=== PATIENT | male | born 2000 | race Caucasian/White ===

== ENCOUNTER 2021-08-26 06:49 | Emergency (ER) | payer BC | END 2021-08-26 08:28 | disposition left against medical advice (07) | LOC: ER 06:49 | DX: R06.02 Shortness of breath (principal); Z53.21 Procedure and treatment not carried out due to patient leaving prior to being seen by health care provider ==

== ENCOUNTER 2021-09-14 06:00 | Emergency (ER) | payer BC ==
[~2021-09-14] VITALS: Ht 185.4 cm; Wt 84.0 kg
[2021-09-14] MEDS ORDERED: predniSONE 20 MG TABLET PO ONE (06:30)
[2021-09-14] MEDS ORDERED: IPRATRPIUM/ALBUTEROL 0.5/2.5MG 3 ML NEBU. NEB ONE ×2 (06:30)
--- NOTE | 2021-09-14 06:35 | ED.ADGEN ---
Past Medical History Past Surgical History: No Surgical History General Adult EDM: Chief Complaint: ASTHMA HPI: HPI: Patient is a 21 year old male coming in for asthma exacerbation. Patient states that he woke up about 3 hours prior to arrival with worsening shortness of breath. Patient states he uses inhaler once before he went to bed, woke up and had to use against it only helps for about 30 minutes. Does not have a nebulizer at home. Patient states that his regular about once a day. Is never been hospitalized for his asthma. Review of Systems: Review of Systems: All other systems within normal limits except for as noted in the HPI Current Medications: Current Medications Medications (Trade) Dose Ordered Sig/Ronny Start Time Stop Time Status Last Admin Dose Admin Albuterol/ Ipratropium (Duoneb) 3 ml 1X ONCE 09/14/21 06:30 09/14/21 06:31 DC 09/14/21 06:30 3 ML Prednisone (Prednisone) 60 mg 1X ONCE 09/14/21 06:30 09/14/21 06:31 DC 09/14/21 07:09 60 MG Allergies: Allergies: Allergies Coded Allergies Type Severity Reaction Last Updated Verified naproxen Allergy Unknown 09/14/21 Yes Physical Exam: PE: Constitutional: Well developed, well nourished, no acute distress, non-toxic appearance. [] HENT: Normocephalic, atraumatic, bilateral external ears normal, nose normal. [] Eyes: PERRLA, conjunctiva normal, no discharge. [] Neck: No rigidity, supple, no stridor. [] Cardiovascular: Regular rate and rhythm, brisk cap refill [] Lungs & Thorax: Non labored symmetric respirations, no tachypnea or respiratory distress. Bilateral expiratory and inspiratory wheezes. Abdomen: Soft, nondistended. Skin: Warm, dry, no erythema, no rash. [] Back: Unremarkable Extremities: No deformities, range of motion grossly intact, no lower extremity edema [] Neurologic: Alert and oriented X 3, no focal deficits noted. [] Psychologic: Affect normal, judgement normal, mood normal. [] Current Patient Data: Vital Signs: Vital Signs Date Time Temp Pulse Resp B/P (MAP) Pulse Ox O2 Delivery O2 Flow Rate FiO2 09/14/21 07:04 95 Room Air 09/14/21 06:05 80 24 132/70 (90) EKG: EKG: [] Heart Score: C/O Chest Pain: No Risk Factors: Risk Factors: DM, Current or recent (<one month) smoker, HTN, HLP, family history of CAD, obesity. Risk Scores: Score 0 - 3: 2.5% MACE over next 6 weeks - Discharge Home Score 4 - 6: 20.3% MACE over next 6 weeks - Admit for Clinical Observation Score 7 - 10: 72.7% MACE over next 6 weeks - Early Invasive Strategies Radiology/Procedures: Radiology/Procedures: [facility] [address] [place] [address] IMAGING REPORT Signed PATIENT: ANNABEL SALDIVAR ACCOUNT: [id number] : 2000 LOCATION: ER AGE: 21 SEX: M EXAM STATUS: REG ER ORD. PHYSICIAN: ROHITH HENRY MD REASON: wheezing PROCEDURE: CHEST AP ONLY AP chest. HISTORY: Wheezing AP view was taken of the chest. Lungs are free of infiltrates. Heart is normal in size. There is no pleural effusion. IMPRESSION: 1. No acute chest disease. Electronically signed by: Lew Leigh MD (09/14/2021 7:05 AM) [facility] DICTATED and SIGNED BY: LEW LEIGH MD DATE: 09/14/21 0704 [] Course & Med Decision Making: Course & Med Decision Making Pertinent Labs and Imaging studies reviewed. (See chart for details) [] Leoncio Disclaimer: Leoncio Disclaimer: This electronic medical record was generated, in whole or in part, using a voice recognition dictation system. Departure Departure Impression: Primary Impression: Asthma exacerbation Disposition: HOME / SELF CARE / HOMELESS Condition: STABLE Referrals: UNKNOWN PCP NAME (PCP) Patient Instructions: Asthma Attacks, Prevention Scripts Prednisone (PREDNISONE) 50 Mg Tablet 1 TAB PO DAILY for steroid for 4 Days, #4 TAB Prov: ROHITH HENRY MD 09/14/21 ROHITH HENRY MD Sep 14, 2021 06:35
--- NOTE | 2021-09-14 07:07 | RAD ---
AP chest. HISTORY: Wheezing AP view was taken of the chest. Lungs are free of infiltrates. Heart is normal in size. There is no p leural effusion. IMPRESSION: 1. No acute chest disease. Electronically signed by: Lew Armas MD (09/14/2021 7:05 AM) [facility]
[2021-09-14] MEDS ORDERED: PRED50TA PO (07:38)
[2021-09-14 08:10] VITALS: BP 127/81
== END 2021-09-14 08:29 | disposition home or self-care (01) ==
LOC: ER 06:00
DX: J45.901 Unspecified asthma with (acute) exacerbation (principal); Z88.5 Allergy status to narcotic agent
CPT/HCPCS: 71045; 94640; 99284; J7512

== ENCOUNTER 2021-09-28 10:47 | Emergency (ER) | payer BC ==
[~2021-09-28] VITALS: Ht 185.4 cm; Wt 88.0 kg
[~2021-09-28 10:47] MED LIST: PRED50TA PO
[2021-09-28] MEDS ORDERED: IPRATRPIUM/ALBUTEROL 0.5/2.5MG 3 ML NEBU. NEB ONE (11:00)
[2021-09-28] MEDS ORDERED: DEXAMETHASONE SOD PHOS 20 MG/5 ML VIAL. IM ONE (11:15)
--- NOTE | 2021-09-28 11:31 | PHYS DOC ---
Past Medical History Past Surgical History: No Surgical History Smoking Status: Never Smoker Alcohol Use: Occasionally General Adult EDM: Chief Complaint: SHORTNESS OF BREATH HPI: HPI: Patient is a 21-year-old male presents to the emergency department complaining of asthma attack that started this morning when he woke up at approximately 8:30 AM. Patient reports taking 2 puffs of his rescue albuterol MDI at that time, repeated 2 more times prior to coming to the emergency department. Patient reports his last asthma exacerbation was 3 weeks ago in which he was treated with albuterol treatments and steroid therapy and discharged home. Patient denies hospitalizations related to asthma problems. Patient states his only other medication he takes at home is Zyrtec daily for allergies. States he follows a Dr. Covington in [facility] for his asthma problems. Patient denies recent fever or chills, denies cough chest or nasal congestion. Patient denies rashes or itching to his skin. Denies throat swelling or throat pain. Denies ear pain. Patient denies dizziness, syncopal or near syncopal episodes. Trinidad ent denies chest pain, chest or palpitations. Patient denies a surgical history. Patient denies other physical complaints or physical concerns. Review of Systems: Review of Systems: 14 body systems of review of systems have been reviewed. See HPI for pertinent positives and negative responses, otherwise all other systems are negative, nonpertinent or noncontributory. Constitutional: Negative except as outlined in HPI above. Skin: Negative except as outlined in HPI above. Eyes: Negative except as outlined in HPI above. HENT: Negative except as outlined in HPI above. Respiratory: Negative except as outlined in HPI above. Cardiovascular: Negative except as outlined in HPI above. GI: Negative except as outlined in HPI above. : Negative except as outlined in HPI above. Musculoskeletal: Negative except as outlined in HPI above. Integument: Negative except as outlined in HPI above. Neurologic: Negative except as outlined in HPI above. Endocrine: Negative except as outlined in HPI above. Lymphatic: Negative except as outlined in HPI above. Psychiatric: Negative except as outlined in HPI above. Heart Score: C/O Chest Pain: No Risk Factors: Risk Factors: DM, Current or recent (<one month) smoker, HTN, HLP, family history of CAD, obesity. Risk Scores: Score 0 - 3: 2.5% MACE over next 6 weeks - Discharge Home Score 4 - 6: 20.3% MACE over next 6 weeks - Admit for Clinical Observation Score 7 - 10: 72.7% MACE over next 6 weeks - Early Invasive Strategies Current Medications: Current Medications Medications (Trade) Dose Ordered Sig/Ronny Start Time Stop Time Status Last Admin Dose Admin Albuterol/ Ipratropium (Duoneb) 3 ml 1X ONCE 09/28/21 11:00 09/28/21 11:01 DC 09/28/21 11:07 3 ML Dexamethasone Sodium Phosphate (Decadron) 10 mg 1X ONCE 09/28/21 11:15 09/28/21 11:16 DC Allergies: Allergies: Allergies Coded Allergies Type Severity Reaction Last Updated Verified naproxen Allergy Intermediate 09/28/21 Yes Physical Exam: PE: Constitutional: Well developed, well nourished, no acute distress, non-toxic appearance. 21-year-old male in mild respiratory distress. Audible I/E wheezing appreciated during examination. HENT: Normocephalic, atraumatic. Oropharynx is moist, pink, no deep tissue infectious process appreciated, bilateral TMs intact and within normal limits. There is no drooling, no trismus, patient is speaking in normal voice tones. Eyes: Conjunctiva normal, no discharge. No scleral icterus. Neck: Normal range of motion, no stridor. No meningismus signs, no nuchal rigidity. Cardiovascular: No cyanosis appreciated, distal cap refill less than 2 seconds. Regular rate and rhythm, heart sounds S1-S2 auscultation. Lungs & Thorax: Patient is in mild respiratory distress, there are audible I/E wheezing appreciated. I/E wheezing all lung graham to auscultation, patient is using abdominal sensory muscles for expiration, there are no other accessory muscle use appreciated. Patient is not tripoding. Patient is speaking in full sentences. Abdomen: Nontender, no abnormalities noted. Skin: Warm, dry, no erythema, no rash. Back: No tenderness, no deformities. Extremities: No tenderness, no cyanosis, no clubbing, ROM intact, no edema. Neurologic: Alert and oriented X 3, normal motor function, normal sensory function, no focal deficits noted. Psychologic: Affect normal, judgement normal, mood normal. Current Patient Data: Vital Signs: Vital Signs Date Time Temp Pulse Resp B/P (MAP) Pulse Ox O2 Delivery O2 Flow Rate FiO2 09/28/21 11:08 95 Room Air 09/28/21 10:48 97.7 116 22 127/81 (96) 97.7 EKG: EKG: [] Radiology/Procedures: Radiology/Procedures: REASON: Shortness of breath PROCEDURE: CHEST AP ONLY AP chest. HISTORY: Short of breath AP view was taken of the chest. Comparison is made with a study from September 14. Lungs are free of infiltrates. Heart is normal in size. There is no pleural effusion. IMPRESSION: 1. No acute chest disease. Electronically signed by: eLw Armas MD (09/28/2021 11:38 AM) [id number] Course & Med Decision Making: Course & Med Decision Making Pertinent Labs and Imaging studies reviewed. (See chart for details) 21-year-old male, vital signs reviewed, presents emergency department concerning acute exacerbation of asthma attack. Physical examination concerning for asthma attack, will order A/A nebulizer treatment, chest x-ray, discussed patient case and ED presentation with ED attending physician Dr. Gilbert who recommended 10 mg Decadron IM for steroid therapy. Decadron IM 10 mg ordered. Patient does not use MDI spacer for inhaled medication use. Patient was given MDI spacer with instructions, gave verbal understanding of instructions and use and home care of MDI spacer. Discussed with patient using spacer for all future MDI medication use. Patient chest x-ray unremarkable per radiologist interpretation. Upon reevaluation of the patient, the patient is in no respiratory distress, lung sounds are clear to auscultation all lung graham, patient states he feels 100% better and is ready to go home. Patient did disclose that he has had more frequent asthma exacerbations, discussed with patient at length strict follow-up with primary care this week, call today for an appointment for reevaluation of pulmonary function test related to increased frequency of asthma exacerbations. Continue all home medications, return to ER precautions or concerns were reviewed, patient gave verbal understanding of and is amenable to ED discharge planning. Discussed with the patient all findings and diagnostic testing as well as the need to follow-up with their primary care provider for further evaluation and treatment or return to the ED if any new or worsening symptoms. Strict return precautions were also discussed at length, the patient voiced understanding and agreement with the discharge planning. The patient was nontoxic in appearance, in no apparent distress, and hemodynamically stable at the time of disposition. Dragon Disclaimer: Dragloreto Disclaimer: This electronic medical record was generated, in whole or in part, using a voice recognition dictation system. Departure Departure Impression: Primary Impression: Asthma exacerbation Qualified Codes: J45.21 - Mild intermittent asthma with (acute) exacerbation Disposition: HOME / SELF CARE / HOMELESS Condition: GOOD Referrals: UNKNOWN PCP NAME (PCP) Patient Instructions: Asthma, Adult Additional Instructions: You were seen today in the emergency department for an asthma attack. He was given a nebulizer treatment of ipratropium bromide/albuterol medication. You are also given a intramuscular injection of Decadron 10 mg, this is a steroid. Your chest x-ray is reassuring as it did not show any signs of infection or other abnormalitie of the chest. You had disclosed that you have been experiencing an increased frequency of your asthma exacerbations. As we discussed, it is very important that you call your primary care doctor today and schedule an appointment for a reevaluation of your pulmonary function test and ongoing management of your asthma problems. Please return to the emergency dep artment for return of symptoms, worsening symptoms, or other concerns. Thank you for visiting our Emergency Department. It was a pleasure taking care of you today in the emergency department and we appreciate you trusting us with your care. If any additional problems come up don't hesitate to return to visit us. Please follow up with your primary care provider so they can plan additional care if needed and know about the problem that you had. If symptoms worsen come back to the Emergency Department. Any concerning symptoms that start such as chest pain, shortness of air, weakness or numbness on one side of the body, running high fevers or any other concerning symptoms return to the ER. DHRUV ALEXANDRA APRN Sep 28, 2021 11:31
--- NOTE | 2021-09-28 11:40 | RAD ---
AP chest. HISTORY: Short of breath AP view was taken of the chest. Comparison is made with a study from September 14. Lungs are free of infi ltrates. Heart is normal in size. There is no pleural effusion. IMPRESSION: 1. No acute chest disease. Electronically signed by: Lew Armas MD (09/28/2021 11:38 AM) [id number]
[2021-09-28 11:59] VITALS: BP 115/58
== END 2021-09-28 12:08 | disposition home or self-care (01) ==
LOC: ER 10:47
DX: J45.21 Mild intermittent asthma with (acute) exacerbation (principal); Z88.5 Allergy status to narcotic agent
CPT/HCPCS: 71045; 94640; 96372; 99285; J1100

== ENCOUNTER 2021-10-27 12:45 | Emergency (ER) | payer BC ==
[~2021-10-27] VITALS: Ht 185.4 cm; Wt 90.5 kg
[2021-10-27 12:47] VITALS: BP 95/73
--- NOTE | 2021-10-27 12:50 | PHYS DOC ---
Past Medical History Past Surgical History: No Surgical History (ELIDA PALENCIA DO) Smoking Status: Never Smoker Alcohol Use: Occasionally (ELIDA PALENCIA DO) Adult General Chief Complaint Chief Complaint: ASTHMA [facility] HPI Patient is a 21 year old [f__sex] who presents with [] (ELIDA PALENCIA DO) HPI 21-year-old male presents to the emergency department complaining of asthma attack that started 3 days ago. Patient reports he has been using his albuterol MDI several times over the past 3 days noting that his asthma is not resolving. Patient thinks he needs to be on a steroid again and is concerned he is running out of his medications. Patient denies hospitalizations for asthma. Denies other health history, does not smoke cigarettes. Denies illicit drug use. Patient denies recent fever or chills. Patient denies chest pains, chest or nasal congestion. Patient denies other physical complaints or physical concerns. (DHRUV ALEXANDRA APRN) Review of Systems Review of Systems Constitutional: Denies fever or chills [] Eyes: Denies change in visual acuity, redness, or eye pain [] HENT: Denies nasal congestion or sore throat [] Respiratory: Denies cough or shortness of breath [] Cardiovascular: No additional information not addressed in HPI [] GI: Denies abdominal pain, nausea, vomiting, bloody stools or diarrhea [] : Denies dysuria or hematuria [] Musculoskeletal: Denies back pain or joint pain [] Integument: Denies rash or skin lesions [] Neurologic: Denies headache, focal weakness or sensory changes [] Endocrine: Denies polyuria or polydipsia [] All other systems were reviewed and found to be within normal limits, except as documented in this note. (ELIDA PALENCIA DO) Review of Systems 14 body systems of review of systems have been reviewed. See HPI for pertinent positives and negative responses, otherwise all other systems are negative, nonpertinent or noncontributory. Constitutional: Negative except as outlined in HPI above. Skin: Negative except as outlined in HPI above. Eyes: Negative except as outlined in HPI above. HENT: Negative except as outlined in HPI above. Respiratory: Negative except as outlined in HPI above. Cardiovascular: Negative except as outlined in HPI above. GI: Negative except as outlined in HPI above. : Negative except as outlined in HPI above. Musculoskeletal: Negative except as outlined in HPI above. Integument: Negative except as outlined in HPI above. Neurologic: Negative except as outlined in HPI above. Endocrine: Negative except as outlined in HPI above. Lymphatic: Negative except as outlined in HPI above. Psychiatric: Negative except as outlined in HPI above. (DHRUV ALEXANDRA APRN) Current Medications Current Medications Current Medications Medications (Trade) Dose Ordered Sig/Ronny Start Time Stop Time Status Last Admin Dose Admin Albuterol/ Ipratropium (Duoneb) 3 ml 1X ONCE 10/27/21 13:00 10/27/21 13:02 DC 10/27/21 13:31 3 ML Prednisone (Prednisone) 60 mg 1X ONCE 10/27/21 13:00 10/27/21 13:02 DC 10/27/21 13:00 60 MG (DHRUV ALEXANDRA APRN) Allergies Allergies Allergies Coded Allergies Type Severity Reaction Last Updated Verified naproxen Allergy Intermediate 09/28/21 Yes (DHRUV ALEXANDRA APRN) Physical Exam Physical Exam Constitutional: Well developed, well nourished, no acute distress, non-toxic appearance. [] HENT: Normocephalic, atraumatic, bilateral external ears normal, oropharynx moist, no oral exudates, nose normal. [] Eyes: PERRLA, EOMI, conjunctiva normal, no discharge. [] Neck: Normal range of motion, no tenderness, supple, no stridor. [] Cardiovascular:Heart rate regular rhythm, no murmur [] Lungs & Thorax: Bilateral breath sounds clear to auscultation [] Abdomen: Bowel sounds normal, soft, no tenderness, no masses, no pulsatile masses. [] Skin: Warm, dry, no erythema, no rash. [] Back: No tenderness, no CVA tenderness. [] Extremities: No tenderness, no cyanosis, no clubbing, ROM intact, no edema. [] Neurologic: Alert and oriented X 3, normal motor function, normal sensory function, no focal deficits noted. [] Psychologic: Affect normal, judgement normal, mood normal. [] (ELIDA PALENCIA DO) Physical Exam Constitutional: Well developed, well nourished, no acute distress, non-toxic appearance. 21-year-old male in mild respiratory distress. HENT: Normocephalic, atraumatic. Eyes: Conjunctiva normal, no discharge. Neck: Normal range of motion, no stridor. Cardiovascular: No cyanosis appreciated, distal cap refill less than 2 seconds. Regular rate and rhythm, heart sounds S1-S2 to auscultation. Lungs & Thorax: Patient is in no respiratory distress, no audible adventitious lung sounds appreciated. There is I/E wheezing all lung graham to auscultation, abdominal accessory muscle use with breathing. Patient is speaking in full sentences. Abdomen: Nontender, no abnormalities noted. Skin: Warm, dry, no erythema, no rash. Back: No tenderness, no deformities. Extremities: No tenderness, no cyanosis, no clubbing, ROM intact, no edema. Neurologic: Alert and oriented X 3, normal motor function, normal sensory function, no focal deficits noted. Psychologic: Affect normal, judgement normal, mood normal. (DHRUV ALEXANDRA APRN) Current Patient Data Vital Signs Vital Signs Date Time Temp Pulse Resp B/P (MAP) Pulse Ox O2 Delivery O2 Flow Rate FiO2 10/27/21 13:30 98 Room Air 10/27/21 12:47 97.7 18 18 95/73 (80) 97.7 (DHRUV ALEXANDRA APRN) EKG EKG [] (ELIDA PALENCIA DO) Radiology/Procedures Radiology/Procedures [] (ELIDA PALENCIA DO) Course & Med Decision Making Course & Med Decision Making Pertinent Labs and Imaging studies reviewed. (See chart for details) [] (ELIDA PALENCIA DO) Course & Med Decision Making 21-year-old male, vital signs reviewed, presents to the emergency department concerning an asthma attack. Physical presentation is consistent with acute asthma exacerbation, will start A/A nebulizer treatment, p.o. prednisone. After period of time, the patient states he feels much better and is ready to go home, upon reevaluation of lung sounds, all lung sounds clear all lung graham. Discussed with patient concerns for third asthma exacerbation and less than 3 months, patient reports he did see his primary care provider about 3 months ago and was told to follow-up with a shooting gallery operator as there was nothing further he could do. Discussed with patient will recommend a forensic identification specialist for him to follow-up with regarding his increased frequency of asthma exacerbations, will refill prescription for prednisone 50 mg p.o. x5 days, will refill albuterol MDI prescription, discussed return to ER precautions and concerns, patient gave verbal understanding of and is amenable to ED discharge planning. Discussed with the patient all findings and diagnostic testing as well as the need to follow-up with their primary care provider for further evaluation and treatment or return to the ED if any new or worsening symptoms. Strict return precautions were also discussed at length, the patient voiced understanding and agreement with the discharge planning. The patient was nontoxic in appearance, in no apparent distress, and hemodynamically stable at the time of disposition. (DHRUV ALEXANDRA APRN) Dragon Disclaimer Dragon Disclaimer This electronic medical record was generated, in whole or in part, using a voice recognition dictation system. (ELIDA PALENCIA DO) Departure Departure Impression: Primary Impression: Asthma exacerbation Disposition: 01 HOME / SELF CARE / HOMELESS Condition: GOOD Referrals: UNKNOWN PCP NAME (PCP) ARLENE COMBS MD Patient Instructions: Asthma, Adult Additional Instructions: You were seen today in the emergency department for asthma exacerbation. You we re given a breathing treatment and started on an oral steroid. As we discussed I am refilling your albuterol MDI inhalers and a prednisone regimen that you will take once a day for the next 5 days. During this time please contact a forensic identification specialist for reevaluation of your increase in frequency of asthma attacks. You may choose any forensic identification specialist however please consider using Dr. Tsang, his information is attached above, call tomorrow for an appointment. Thank you for visiting our Emergency Department. It was a pleasure taking care of you today in the emergency department and we appreciate you trusting us with your care. If any additional problems come up don't hesitate to return to visit us. Please follow up with your primary care provider so they can plan additional care if needed and know about the problem that you had. If symptoms worsen come back to the Emergency Department. Any concerning symptoms that start such as chest pain, shortness of air, weakness or numbness on one side of the body, running high fevers or any other concerning symptoms return to the ER. Scripts Albuterol Sulfate (Proair Hfa) 8.5 Gm Hfa.aer.ad 2 PUFF IH PRN Q4-6HRS PRN for wheezing for 21 Days, #1 INHALER 0 Refills Prov: DHRUV ALEXANDRA APRN 10/27/21 Prednisone (PREDNISONE) 50 Mg Tablet 1 TAB PO DAILY, #5 TAB 0 Refills Prov: DHRUV ALEXANDRA APRN 10/27/21 Problem Qualifiers Primary Impression: Asthma exacerbation Asthma severity: mild Asthma persistence: intermittent Qualified Codes: J45.21 - Mild intermittent asthma with (acute) exacerbation ELIDA PALENCIA DO October 27, 2021 12:49 DHRUV ALEXANDRA APRN October 27, 2021 14:28
[2021-10-27] MEDS ORDERED: IPRATRPIUM/ALBUTEROL 0.5/2.5MG 3 ML NEBU. NEB ONE (13:00)
[2021-10-27] MEDS ORDERED: predniSONE 20 MG TABLET PO ONE (13:00)
[2021-10-27] MEDS ORDERED: ALBU2.5V8 IH (14:28)
[2021-10-27] MEDS ORDERED: PRED50TA PO (14:28)
== END 2021-10-27 14:33 | disposition home or self-care (01) ==
LOC: ER 12:45
DX: J45.901 Unspecified asthma with (acute) exacerbation (principal)
CPT/HCPCS: 94640; 99283; J7512

== ENCOUNTER 2021-11-15 08:51 | Emergency (ER) | payer BC ==
[~2021-11-15] VITALS: Ht 182.9 cm; Wt 84.8 kg
[~2021-11-15 08:51] MED LIST changes: +ALBU2.5V8 IH
[2021-11-15] MEDS ORDERED: IPRATRPIUM/ALBUTEROL 0.5/2.5MG 3 ML NEBU. NEB ONE (09:15)
[2021-11-15] MEDS ORDERED: predniSONE 20 MG TABLET PO ONE (09:15)
[2021-11-15] MEDS ORDERED: PRED20TA PO (09:54)
--- NOTE | 2021-11-15 09:54 | PHYS DOC ---
Past Medical History Past Medical History: Asthma Past Surgical History: No Surgical History Smoking Status: Never Smoker Alcohol Use: Occasionally General Adult EDM: Chief Complaint: ASTHMA HPI: HPI: Patient is a 21 year old male with a history of asthma who presents to the emergency department today with concerns for an asthma attack. Patient states that he woke up this morning with some wheezing and shortness of breath. He states he used his albuterol inhaler twice at home without relief and therefore decided to present to the emergency department for further evaluation. He d enies any chest pain. He denies any fevers or chills. He has had a nonproductive cough this morning. He states his last asthma attack was about a month ago. He states that symptoms this morning are typical for his asthma exacerbations. Review of Systems: Review of Systems: Constitutional: Denies fever or chills. [] Eyes: Denies change in visual acuity. [] HENT: Denies nasal congestion or sore throat. [] Respiratory: positive for wheezing and shortness of breath. [] Cardiovascular: Denies chest pain or edema. [] GI: Denies abdominal pain, nausea, vomiting, bloody stools or diarrhea. [] : Denies dysuria. [] Musculoskeletal: Denies back pain or joint pain. [] Integument: Denies rash. [] Neurologic: Denies headache, focal weakness or sensory changes. [] Endocrine: Denies polyuria or polydipsia. [] Lymphatic: Denies swollen glands. [] Psychiatric: Denies depression or anxiety. [] Heart Score: C/O Chest Pain: No Current Medications: Current Medications Medications (Trade) Dose Ordered Sig/Ronny Start Time Stop Time Status Last Admin Dose Admin Albuterol/ Ipratropium (Duoneb) 3 ml 1X ONCE 11/15/21 09:15 11/15/21 09:16 DC 11/15/21 09:21 3 ML Prednisone (Prednisone) 60 mg 1X ONCE 11/15/21 09:15 11/15/21 09:16 DC 11/15/21 09:17 60 MG Allergies: Allergies: Allergies Coded Allergies Type Severity Reaction Last Updated Verified naproxen Allergy Intermediate 09/28/21 Yes Physical Exam: PE: Constitutional: Well developed, well nourished, no acute distress, non-toxic appearance. [] HENT: Normocephalic, atraumatic, bilateral external ears normal, oropharynx moist, no oral exudates, nose normal. [] Eyes: PERRLA, EOMI, conjunctiva normal, no discharge. [] Neck: Normal range of motion, no tenderness, supple, no stridor. [] Cardiovascular:Heart rate regular rhythm, no murmur [] Lungs & Thorax: Inspiratory and expiratory wheezing noted in all lung graham. Abdomen: Bowel sounds normal, soft, no tenderness, no masses, no pulsatile masses. [] Skin: Warm, dry, no erythema, no rash. [] Back: No tenderness, no CVA tenderness. [] Extremities: No tenderness, no cyanosis, no clubbing, ROM intact, no edema. [] Neurologic: Alert and oriented X 3, normal motor function, normal sensory function, no focal deficits noted. [] Psychologic: Affect normal, judgement normal, mood normal. [] Current Patient Data: Vital Signs: Vital Signs Date Time Temp Pulse Resp B/P (MAP) Pulse Ox O2 Delivery O2 Flow Rate FiO2 11/15/21 09:25 95 Room Air 11/15/21 09:02 97.7 81 22 115/62 (79) 97.7 EKG: EKG: [] Radiology/Procedures: Radiology/Procedures: [] Course & Med Decision Making: Course & Med Decision Making Patient evaluated at the bedside. Patient does have inspiratory and expiratory wheezing on exam. He was treated with a DuoNeb. He was also given 60 mg of prednisone here in the emergency department. On reevaluation his wheezing has resolved and patient states that he feels much better. We will discharge him home with a 5-day course of prednisone and have him follow-up with his PCP. Leoncio Disclaimer: Leoncio Disclaimer: This electronic medical record was generated, in whole or in part, using a voice recognition dictation system. Departure Departure Impression: Primary Impression: Acute asthma exacerbation Disposition: HOME / SELF CARE / HOMELESS Condition: IMPROVED Referrals: UNKNOWN PCP NAME (PCP) Patient Instructions: Asthma Attacks, Prevention, Asthma, Acute Bronchospasm Scripts Prednisone (PREDNISONE) 20 Mg Tablet 3 TAB PO DAILY for 5 Days, #15 TAB Prov: KEISHA VANEGAS MD 11/15/21 KEISHA VANEGAS MD November 15, 2021 09:54
[2021-11-15 09:58] VITALS: BP 114/64
== END 2021-11-15 09:59 | disposition home or self-care (01) ==
LOC: ER 08:51
DX: J45.901 Unspecified asthma with (acute) exacerbation (principal); Z88.5 Allergy status to narcotic agent
CPT/HCPCS: 94640; 99283; J7512